=== PATIENT | female | born 1965 | race African-American/Black ===

== ENCOUNTER 2017-06-29 18:25 | Emergency (ER) | payer MEDICAID ==
[~2017-06-29] VITALS: Ht 160 cm; Wt 97.5 kg
[2017-06-29 18:41] VITALS: BP_SYST 147
--- NOTE | 2017-06-29 18:51 | NUR ---
Patient to ER bed 08 to gown for evaluation. Side rails up.
--- NOTE | 2017-06-29 18:55 | NUR ---
Pt is AAO x 4 and was wheeled into ED by staff. Pt complains of pain to left side of back that radiates from left leg and back up to left elbow for about 2 months. Pt states pain has gotten worse and today it was difficult for her to stand up due to pain. Pt denies N/V, fever, or diarrhea. No other injuries/complaints per patient or noted.
--- NOTE | 2017-06-29 19:05 | NUR ---
LUIS Epperson at bedside for medical evaluation.
[2017-06-29 19:26] LABS: BILIRUBIN,URINE NEGATIVE (NEGATIVE); BLOOD, URINE NEGATIVE (NEGATIVE); CLARITY/URINE CLEAR (CLEAR); COLOR,URINE YELLOW (YELLOW); GLUCOSE,URINE NEGATIVE (NEGATIVE); KETONES,URINE NEGATIVE (NEGATIVE); LEUKOCYTE ESTERASE ,URINE NEGATIVE (NEGATIVE); NITRITE, URINE NEGATIVE (NEGATIVE); PH,URINE 5.5 (5.0-8.0); PROTEIN URINE NEGATIVE (NEGATIVE); UROBILINOGEN,URINE 0.2 (0.2-1.0)
--- NOTE | 2017-06-29 19:27 | NUR ---
Patient transported to radiology via wheelchair, accompanied by information technology program manager.
--- NOTE | 2017-06-29 19:37 | NUR ---
Patient returned from radiology via wheelchair, no acute distress noted at this time.
[2017-06-29] MEDS: IBUPROFEN 800 MG TABLET PO ONE (20:26)
[2017-06-29] MEDS: HYDROcodone/ACETAMIN 5-325 MG TAB (NORCO/ VICODIN) PO ONE (20:27)
--- NOTE | 2017-06-29 21:00 | NUR ---
No adverse reactions noted after medication administration. Will continue to monitor.
[2017-06-29 21:07] VITALS: BP_SYST 139
--- NOTE | 2017-06-29 21:07 | NUR ---
Patient given written and verbal discharge instructions and verbalizes understanding. ER MD discussed with patient the results and treatment provided. Patient in stable condition. ID arm band removed. Rx of Tylenol with codeine, Flexeril, and Motrin given. Patient educated on pain management and to follow up with PMD. Pain Scale 2/10 tolerable to patient. Opportunity for questions provided and answered.
== END 2017-06-29 21:07 | disposition home or self-care (01) ==
LOC: SED 18:25
DX: M54.40 Lumbago with sciatica, unspecified side (principal); I10 Essential (primary) hypertension
CPT/HCPCS: 72100-TC; 81003; 81025; 99285